=== PATIENT | male | born 1955 | race Caucasian/White ===

== ENCOUNTER 2017-02-05 16:08 | Inpatient (IN) ==
[2017-02-05] MEDS ORDERED: M.V.I.-12 10 ML, FOLIC ACID 1 MG, MAGNESIUM SULFATE 1 GM, THIAMINE 100 MG in NS 1,000 ML IV ONE (16:28)
--- NOTE | 2017-02-05 16:59 | EKG Report ---
Test Performed on : 02/05/2017 4:31:28 PM Test Reason : AMS Blood Pressure : / mmHG Vent. Rate : 092 BPM Atrial Rate : 092 BPM P-R Int : 154 ms QRS Dur : 080 ms QT Int : 342 ms P-R-T Axes : 081 087 080 degrees QTc Int : 422 ms Normal sinus rhythm. Septal infarct , age undetermined Abnormal ECG No previous ECGs available Unconfirmed Result
[2017-02-05 17:20] LABS: URINE CULTURE PL NEEDED? NO
[2017-02-05 17:24] LABS: BILIRUBIN URINE NEGATIVE (NEGATIVE); BLOOD URINE TRACE (NEGATIVE); CLARITY CLEAR (CLEAR); COLOR YELLOW; GLUCOSE URINE NEGATIVE (NEGATIVE); LEUKOCYTES URINE NEGATIVE (NEGATIVE); NITRITE URINE NEGATIVE (NEGATIVE); PH URINE 6.5; PROTEIN URINE TRACE mg/dL (NEGATIVE); UR AMPHETAMINES QUAL NONE DETECTED (NONE DETECT); UR BARBITUATES QUAL NONE DETECTED (NONE DETECT); UR BENZODIAZEPIN QUAL NONE DETECTED (NONE DETECT); UR CANNABINOIDS QUAL NONE DETECTED (NONE DETECT); UR COCAINE QUAL NONE DETECTED (NONE DETECT); UR MDMA QUAL NONE DETECTED (NONE DETECT); UR METHADONE QUAL NONE DETECTED (NONE DETECT); UR METHAMPHETAMINE QUAL NONE DETECTED (NONE DETECT); UR OPIATES QUAL NONE DETECTED (NONE DETECT); UR OXYCODONE QUAL NONE DETECTED (NONE DETECT); UR PCP QUAL NONE DETECTED (NONE DETECT); UR TCA QUAL NONE DETECTED (NONE DETECT); UROBILINOGEN URINE NORMAL
[2017-02-05 17:25] LABS: URINE RBC <10 /HPF (<10); URINE SOURCE CATH
[2017-02-05] MEDS ORDERED: NS 1,000 ML ONE (17:30)
[2017-02-05 17:37] LABS: MANUAL DIFF NEEDED? NO
[2017-02-05 17:38] LABS: BASO% 0.4 % (0.0-0.8); HEMATOCRIT 43.2 % (42.0-52.0); HEMOGLOBIN 14.9 g/dL (14.0-18.0); IMM GRAN# 0.01 X1000 (0.0-0.04); IMM GRAN% 0.2 % (0.0-0.5); LYMPH# 2.05 X1000 (1.2-3.4); LYMPH% 42.6 % (20.5-51.1); MCH 31.3 PG (27-31); MCHC 34.5 g/dL (33-37); MCV 90.8 FL (81-99); MONO# 0.29 X1000 (0.11-0.59); MPV 9.5 FL (7.4-10.4); NEUT% 50.8 % (42.2-75.2); PLT 169 X1000 (130-400); RBC 4.76 XMIL (4.7-6.1)
[2017-02-05 17:55] LABS: ACETAMINOPHEN < 1.2 ug/mL (10-30); AGAP 18; ALBUMIN 3.9 g/dL (3.5-5.0); ALKALINE PHOSPHATASE 110 U/L (32-122); BUN 10 mg/dL (8-22); CALCIUM 8.1 mg/dL (8.8-10.2); CHLORIDE 95 mmol/L (98-107); COSMO 268; GOT 36 U/L (10-34); GPT 16 U/L (10-44); LIPASE 24 U/L (13-60); POTASSIUM 3.7 mmol/L (3.5-5.1); SODIUM 135 mmol/L (136-145); TCO2 22 mmol/L (25-35); TOTAL PROTEIN 6.8 g/dL (6.3-8.3)
--- NOTE | 2017-02-05 17:59 | Diag Imaging Result Document ---
PROCEDURE NAME: HEAD W/O CONTRAST - 02/05/[address]: A CT dose reduction protocol was used. COMPARISON: None. FINDINGS: There is probably a small posterior fossa arachnoid cyst at the left cerebellar hemisphere. There is mild periventricular white matter hypodensity compatible with chronic microvascular disease of the cerebrum. No intracranial mass or hemorrhage. The skull is intact. The sinuses, mastoids, and middle ears are clear. IMPRESSION: Chronic microvascular disease. No acute disease. [facility]
--- NOTE | 2017-02-05 18:15 | Diag Imaging Result Document ---
PROCEDURE NAME: CHEST-1 VIEW - 02/05/2017 PORTABLE CHEST X-RAY: COMPARISON: 12/14/2016. FINDINGS: The lungs are normally expanded and clear. Heart size and mediastinal contours are normal. No pneumothorax or pleural effusion. IMPRESSION: Negative exam.
[2017-02-05] MEDS ORDERED: NS 1,000 ML IV SCH (18:46)
[2017-02-06] MEDS ORDERED: TYLENOL PO PRN (01:42)
[2017-02-06] MEDS ORDERED: ZOFRAN IV PRN (01:42)
[2017-02-06] MEDS ORDERED: NS 1,000 ML IV ONE (01:42)
[2017-02-06 14:08] VITALS: BP 109/62
--- NOTE | 2017-02-06 16:01 | HISTORY AND PHYSICAL ---
PRIMARY CARE PROVIDER: BEREKET Lewis. CHIEF COMPLAINT: Unresponsive. HISTORY OF PRESENT ILLNESS: Mr. Rachael Zee is a 61-year-old male with a history of alcoholism who was found unresponsive at a hotel after drinking 2 gallons of vodka. He is now awake. He is oriented. He does complain of nausea, vomiting, diarrhea. He also complains of fever and chills. No other complaints other than being very thirsty. Now that he is responsive likely will be getting discharged soon. PAST MEDICAL HISTORY: 1. Chronic pain syndrome of the right leg. 2. Depression. 3. Bipolar. SURGICAL HISTORY: Right knee surgery. SOCIAL HISTORY: Two pack per day smoker. Drinks a 5th of vodka per day. Denies illicit drug use. Lives with his brother in a tent. FAMILY HISTORY: Noncontributory. REVIEW OF SYSTEMS: Ten point review of systems were complete and all were negative except for those mentioned above HPI. ALLERGIES: No known drug allergies. HOME MEDICATIONS: Celexa 40 mg p.o. daily, Flexeril 10 mg 3 times daily as needed, Mobic 7.5 mg p.o. daily, risperidone 1 mg p.o. t.i.d. LABORATORY DATA: White blood cells 4000, hemoglobin 14, hematocrit 43, platelet count 169,000. Sodium 135, potassium 3.7, BUN 10, creatinine 0.7, glucose 71, calcium 8.1, total bilirubin 0.8, AST 36, ALT 16, ammonia 31, lipase 24. Urinalysis trace protein, small ketones, otherwise negative. Urine drug screen negative. Alcohol level on admit was 458, this morning is 268. IMAGING: Head CT was negative. Chest x-ray was negative. EKG. Normal sinus rhythm, rate 92, QTc was 422. PHYSICAL EXAM: VITAL SIGNS: Temperature 98.1 degrees, heart rate 112, respiratory rate 16, blood pressure 121/78, O2 saturation 96% on room air. He is 5 feet 8 inches tall, 170 pounds, BMI 25.8. GENERAL: Mr. Zee is a 61-year-old male. He is answering questions appropriately but is slightly anxious. HEENT: Atraumatic, normocephalic. Pupils equal, round, reactive to light. Extraocular movements intact. Mucous membranes are dry. NECK: No JVD or carotid bruits noted. CARDIOVASCULAR: S1, S2. Tachycardic rate and rhythm. No rubs, gallops, murmurs. PULMONARY: Clear to auscultate bilateral breath sounds. No accessory muscle use or work of breathing noted. GI: Soft, nontender, nondistended. Positive bowel sounds x4.. EXTREMITIES: No edema noted. +2 dorsalis and radial pulses. SKIN: Warm, dry, intact. Left index finger with old cigarette hunter. NEURO: Oriented x3. Moves all extremities equally. ASSESSMENT AND PLAN: 1. Toxic encephalopathy secondary to alcohol overdose. Apparently he drank 2 gallons of vodka. He received IV fluid hydration throughout the night and has now woken and requesting to leave and go home. No signs of delirium tremens at this time but alcohol level is still elevated. 2. Chronic pain syndrome of the right leg. 3. Depression bipolar. Continue home medications. 4. Tobacco abuse. Cessation discussed. 5. Alcohol abuse. Currently no signs of delirium tremens. Dictated by BEREKET Mixon for Sherwin Corado MD cc: BEREKET Macias MD
--- NOTE | 2017-02-07 10:35 | DISCHARGE SUMMARY ---
ADMISSION DATE: 02/06/2017 DISCHARGE DATE: 02/06/2017 DISCHARGE DIAGNOSES: 1. Acute alcohol intoxication. 2. Acute delirium secondary to alcohol intoxication, improving. Patient is awake and alert currently. CONSULTATIONS: None. PROCEDURES: None. BRIEF HOSPITAL COURSE: The patient is a 61-year-old male who was admitted as on the [facility] secondary to having acute alcohol intoxication. He was apparently found in his hotel room by the hotel staff as he had not checked out. He was brought to the emergency department. He was watched overnight. Thankfully, he is much more awake, alert, upon sobering up. On discharge, he knows where he lives and who he is. He knows what phone number to call his brother to come get him. The patient is instructed the perils of alcoholism, as well as ways to stop and has been offered different modalities which he declined. cc: Sherwin Corado MD
--- NOTE | 2017-03-15 18:31 | PROVIDER DOCUMENTATION ---
This chart was entered by Sue Reagan Scribe, acting as scribe for Mick Reis PA. HPI-General Adult - General Source: patient <Robi Chin - Last Filed: 02/09/17 19:12> - General Source: patient - History of Present Illness -Gen Adult Nature of Presenting Problems: 61 yo M presents to the ER via EMS with complaint of unresponsive. Pt was staying in a hotel, staff states for 4-5 nights. Missed checkout time so staff went to check on pt, found about 2 gallons of vodka in pt's room. Pt would not respond to PD so they called EMS, pt is arousable but does not respond. EMS reports pt responded when they placed an IV but has not said anything. <Mick Reis - Last Filed: 03/15/17 18:30> - General Source: patient <TereMartinAbiel Gil - Last Filed: 03/24/17 21:28> - General Chief Complaint: Intoxicated Stated Complaint: INTOXICATED Time Seen by Provider: 02/05/17 16:25 Allergies/Adverse Reactions: Patient Allergies Allergy/AdvReac Type Severity Reaction Status Date / Time No Known Allergies Allergy Verified 02/05/17 16:12 Home Medications: Home Medication List Medication Instructions Recorded Confirmed Last Taken Type Citalopram [Celexa] 40 mg PO DAILY 12/14/16 12/14/16 12/14/16 07:00 History Cyclobenzaprine [Flexeril] 10 mg PO TID #20 tablet 12/14/16 Unknown Rx Meloxicam [Mobic] 7.5 mg PO DAILY PRN PRN #15 tablet 12/14/16 Unknown Rx Risperidone [Risperdal] 1 mg PO TID 12/14/16 12/14/16 12/14/16 07:00 History Review of Systems - Adult - REVIEW OF SYSTEMS - ADULT Constitutional: reports: no symptoms reported Eyes: reports: no symptoms reported Ears, Nose, Mouth & Throat: reports: no symptoms reported Cardiovascular: reports: no symptoms reported Respiratory: reports: no symptoms reported Gastrointestinal: reports: no symptoms reported Genitourinary: reports: no symptoms reported Musculoskeletal: reports: no symptoms reported Integumentary: reports: no symptoms reported Neurological: reports: no symptoms reported Psychiatric: reports: no symptoms reported Endocrine: reports: no symptoms reported Hematologic/Lymphatic: reports: no symptoms reported Allergic/Immunologic: reports: no symptoms reported All Other Systems: Reviewed and Negative <Robi Chin - Last Filed: 02/09/17 19:12> - REVIEW OF SYSTEMS - ADULT ROS:: unobtainable per condition Constitutional: denies: chills, fever Eyes: reports: no symptoms reported Ears, Nose, Mouth & Throat: reports: no symptoms reported Cardiovascular: reports: no symptoms reported Respiratory: reports: no symptoms reported Gastrointestinal: reports: no symptoms reported Genitourinary: reports: no symptoms reported Musculoskeletal: reports: no symptoms reported Integumentary: reports: no symptoms reported Neurological: reports: no symptoms reported Psychiatric: reports: no symptoms reported Endocrine: reports: no symptoms reported Hematologic/Lymphatic: reports: no symptoms reported Allergic/Immunologic: reports: no symptoms reported All Other Systems: Reviewed and Negative <Mick Reis - Last Filed: 03/15/17 18:30> - REVIEW OF SYSTEMS - ADULT ROS:: unobtainable per condition Constitutional: reports: no symptoms reported Eyes: reports: no symptoms reported Ears, Nose, Mouth & Throat: reports: no symptoms reported Cardiovascular: reports: no symptoms reported Respiratory: reports: no symptoms reported Gastrointestinal: reports: no symptoms reported Genitourinary: reports: no symptoms reported Musculoskeletal: reports: no symptoms reported Integumentary: reports: no symptoms reported Neurological: reports: no symptoms reported Psychiatric: reports: no symptoms reported Endocrine: reports: no symptoms reported Hematologic/Lymphatic: reports: no symptoms reported Allergic/Immunologic: reports: no symptoms reported All Other Systems: Reviewed and Negative <Katy Carranza - Last Filed: 03/24/17 21:28> Past History - Adult - PAST MEDICAL HISTORY-ADULT Review of Records: reports: Nursing Assessment Review, Medications Reviewed <Robi Chin - Last Filed: 02/09/17 19:12> - PAST MEDICAL HISTORY-ADULT Review of Records: reports: Nursing Assessment Review, Medications Reviewed - PRIOR SURGERIES/PROCEDURES Surgical/Procedure History: reports: orthopedic (extremity) - IMMUNIZATION STATUS Childhood Immunizations: See Nurse Assessment Flu Vaccine: See Nurse Assessment <Mick Reis - Last Filed: 03/15/17 18:30> - PAST MEDICAL HISTORY-ADULT Review of Records: reports: Old Records Reviewed Major Childhood Illnesses: reports: denies history Cardiovascular: reports: denies history Respiratory: reports: denies history Gastrointestinal: reports: denies history Obstetrical/Gynecological: reports: denies history Genitourinary: reports: denies history Musculoskeletal: reports: denies history Neurological: reports: denies history Endocrine/Immune: reports: denies history Other Conditions: reports: denies history - PRIOR SURGERIES/PROCEDURES Surgical/Procedure History: reports: reviewed, not pertinent - IMMUNIZATION STATUS Childhood Immunizations: See Nurse Assessment Flu Vaccine: See Nurse Assessment - FAMILY HISTORY Family History: reviewed, not pertinent - SOCIAL HISTORY Smoking: denies Substance Use: alcohol Alcohol Use Frequency: every day Number of drinks per typical drinking period:: >20 drinks Living Situation: alone <Katy Carranza - Last Filed: 03/24/17 21:28> Physical Exam-General - PHYSICAL EXAM-ADULT Initial Vital Signs Reviewed: Yes - CONSTITUTIONAL General Appearance: appears well - EYES Eyes: PERRL/EOMI, pink conjunctivae - HEAD, EARS, NOSE, MOUTH & THROAT HENMT: normocephalic/atraumatic, normal ENT inspection, pharynx normal - NECK Neck: non-tender, full range of motion, supple, normal inspection - RESPIRATORY Respiratory: lungs clear, normal breath sounds, no pleuratic chest pain, no respiratory distress, no accessory muscle use - CARDIOVASCULAR Cardiovascular: normal peripheral pulses, regular rate, rhythm, no edema, no gallop, no JVD, no murmur - GASTROINTESTINAL (ABDOMEN) Abdominal Exam: normal bowel sounds, non tender, soft, no organomegaly, no pulsatile mass - LYMPHATIC Lymphatic: no adenopathy - MUSCULOSKELETAL Back Exam: normal inspection, no CVA tenderness, no vertebral tenderness Extremity: normal range of motion, non-tender, normal gait, normal inspection, no pedal edema, no calf tenderness, normal capillary refill, pelvis stable - SKIN Integumentary: normal color, normal turgor, warm/dry - NEUROLOGIC Neurologic: police detention attendant II-XII nml as tested, no motor/sensory deficits - PSYCHIATRIC Psych/Mental Status: normal mood/affect, normal thought content, normal thought process, oriented x 3 <Robi Chin - Last Filed: 02/09/17 19:12> - PHYSICAL EXAM-ADULT Initial Vital Signs Reviewed: Yes - CONSTITUTIONAL General Appearance: other (arousable but unresponsive) - EYES Eyes: PERRL/EOMI, pink conjunctivae - HEAD, EARS, NOSE, MOUTH & THROAT HENMT: normocephalic/atraumatic, normal ENT inspection - NECK Neck: supple, normal inspection - RESPIRATORY Respiratory: no respiratory distress, no accessory muscle use - CARDIOVASCULAR Cardiovascular: normal peripheral pulses, regular rate, rhythm - SKIN Integumentary: normal color, warm/dry <Mick Reis - Last Filed: 03/15/17 18:30> - PHYSICAL EXAM-ADULT Initial Vital Signs Reviewed: Yes - CONSTITUTIONAL General Appearance: other - EYES Eyes: PERRL/EOMI, pink conjunctivae - HEAD, EARS, NOSE, MOUTH & THROAT HENMT: normocephalic/atraumatic, normal ENT inspection - NECK Neck: supple, normal inspection - RESPIRATORY Respiratory: no respiratory distress, no accessory muscle use - CARDIOVASCULAR Cardiovascular: normal peripheral pulses, regular rate, rhythm - GASTROINTESTINAL (ABDOMEN) Abdominal Exam: normal bowel sounds - SKIN Integumentary: normal color, warm/dry - NEUROLOGIC Neurologic: abnormal gait <Katy Carranza - Last Filed: 03/24/17 21:28> Progress - PLAN OF CARE/RESULTS Progress/Plan/Lab Results: Laboratory Results - last 24 hr 02/05/17 02/05/17 02/05/17 17:10 17:10 17:32 WBC RBC Hgb Hct MCV MCH MCHC RDW Std Deviation Plt Count MPV Immature Gran % (Auto) Neut % (Auto) Lymph % (Auto) [place] % (Auto) Eos % (Auto) Baso % (Auto) Immature Gran # (Auto) Neut # (Auto) Lymph # (Auto) [place] # (Auto) Eos # (Auto) Baso # (Auto) Sodium 135 L Potassium 3.7 Chloride 95 L Carbon Dioxide 22 L Anion Gap 18 BUN 10 Creatinine 0.7 Estimated GFR/1.73 m2 > 60 BUN/Creatinine Ratio 14 Glucose 71 Calculated Osmolality 268 Calcium 8.1 L Total Bilirubin 0.80 AST 36 H ALT 16 Alkaline Phosphatase 110 Ammonia Total Protein 6.8 Albumin 3.9 Globulin 3.0 Albumin/Globulin Ratio 1.0 Lipase 24 Urine Source CATH Urine Color YELLOW Urine Clarity CLEAR Urine pH 6.5 Ur Specific Bath 1.010 Urine Protein TRACE A Urine Ketones 1+(Small) A Urine Blood TRACE Urine Nitrite NEGATIVE Urine Bilirubin NEGATIVE Urine Urobilinogen NORMAL Urine Microscopic RBC <10 Urine WBC NEGATIVE Urine Glucose NEGATIVE Salicylates < 3.00 L Urine Opiates Screen NONE DETECTED Ur Oxycodone Screen NONE DETECTED Urine Methadone Screen NONE DETECTED Acetaminophen < 1.2 L Ur Barbituates Screen NONE DETECTED Ur Tricyclics Screen NONE DETECTED Ur Phencyclidine Scrn NONE DETECTED Ur Amphetamines Screen NONE DETECTED U Methamphetamines Scrn NONE DETECTED Urine MDMA Screen NONE DETECTED U Benzodiazepines Scrn NONE DETECTED Urine Cocaine Screen NONE DETECTED U Cannabinoids Screen NONE DETECTED Plasma/Serum Ethyl Alc 02/05/17 02/05/17 02/05/17 17:32 17:32 17:32 WBC 4.81 RBC 4.76 Hgb 14.9 Hct 43.2 MCV 90.8 MCH 31.3 H MCHC 34.5 RDW Std Deviation 12.0 Plt Count 169 MPV 9.5 Immature Gran % (Auto) 0.2 Neut % (Auto) 50.8 Lymph % (Auto) 42.6 [place] % (Auto) 6.0 Eos % (Auto) 0.0 Baso % (Auto) 0.4 Immature Gran # (Auto) 0.01 Neut # (Auto) 2.44 Lymph # (Auto) 2.05 [place] # (Auto) 0.29 Eos # (Auto) 0.00 Baso # (Auto) 0.02 Sodium Potassium Chloride Carbon Dioxide Anion Gap BUN Creatinine Estimated GFR/1.73 m2 BUN/Creatinine Ratio Glucose Calculated Osmolality Calcium Total Bilirubin AST ALT Alkaline Phosphatase Ammonia 31 Total Protein Albumin Globulin Albumin/Globulin Ratio Lipase Urine Source Urine Color Urine Clarity Urine pH Ur Specific [place] Urine Protein Urine Ketones Urine Blood Urine Nitrite Urine Bilirubin Urine Urobilinogen Urine Microscopic RBC Urine WBC Urine Glucose Salicylates Urine Opiates Screen Ur Oxycodone Screen Urine Methadone Screen Acetaminophen Ur Barbituates Screen Ur Tricyclics Screen Ur Phencyclidine Scrn Ur Amphetamines Screen U Methamphetamines Scrn Urine MDMA Screen U Benzodiazepines Scrn Urine Cocaine Screen U Cannabinoids Screen Plasma/Serum Ethyl Alc 458 H* 02/06/17 04:35 WBC RBC Hgb Hct MCV MCH MCHC RDW Std Deviation Plt Count MPV Immature Gran % (Auto) Neut % (Auto) Lymph % (Auto) [place] % (Auto) Eos % (Auto) Baso % (Auto) Immature Gran # (Auto) Neut # (Auto) Lymph # (Auto) [place] # (Auto) Eos # (Auto) Baso # (Auto) Sodium Potassium Chloride Carbon Dioxide Anion Gap BUN Creatinine Estimated GFR/1.73 m2 BUN/Creatinine Ratio Glucose Calculated Osmolality Calcium Total Bilirubin AST ALT Alkaline Phosphatase Ammonia Total Protein Albumin Globulin Albumin/Globulin Ratio Lipase Urine Source Urine Color Urine Clarity Urine pH Ur Specific [place] Urine Protein Urine Ketones Urine Blood Urine Nitrite Urine Bilirubin Urine Urobilinogen Urine Microscopic RBC Urine WBC Urine Glucose Salicylates Urine Opiates Screen Ur Oxycodone Screen Urine Methadone Screen Acetaminophen Ur Barbituates Screen Ur Tricyclics Screen Ur Phencyclidine Scrn Ur Amphetamines Screen U Methamphetamines Scrn Urine MDMA Screen U Benzodiazepines Scrn Urine Cocaine Screen U Cannabinoids Screen Plasma/Serum Ethyl Alc 268 H Orders Category Date Time Status Admit - [facility] Routine AdmDCTranf 02/06/17 01:42 Ordered Activity - Strict Bedrest ORDERED Care 02/06/17 01:42 Active Call Admitting on Arrival AT ADMISSION Care 02/06/17 01:49 Active Neurological Check Q4H Care 02/06/17 01:50 Active Saline Loc DIRECTED Care 02/06/17 01:42 Active Saline Loc NOW Care 02/05/17 16:27 Active Vital Signs Order ARRIVAL TO ROOM Care 02/06/17 01:42 Active Heart Healthy Diet Diet 02/06/17 01:50 Active CHEST-1 VIEW [RAD] Stat Exams 02/05/17 16:28 Draft HEAD W/O CONTRAST [CT] Stat Exams 02/05/17 16:28 Draft ACETAMINOPHEN [TDM] Stat Lab 02/05/17 17:32 Completed ALCOHOL BLOOD Stat Lab 02/05/17 17:32 Completed AMMONIA [CHEM] Stat Lab 02/05/17 17:32 Completed CBC WITH DIFF [HEME] Stat Lab 02/05/17 17:32 Completed COMPREHENSIVE METABOLIC PANEL [CHEM] Stat Lab 02/05/17 17:32 Completed ETOH [ALCOHOL BLOOD] Stat Lab 02/06/17 04:35 Completed LIPASE [CHEM] Stat Lab 02/05/17 17:32 Completed SALICYLATES [TDM] Stat Lab 02/05/17 17:[address] W/POSS RFLX CULT [URINALYSIS] Stat Lab 02/05/17 17:10 Completed URINE DRUG SCREEN PL Stat Lab 02/05/17 17:10 Completed 0.9% Sodium Chloride Inj [Ns] 1,000 ml Med 02/05/17 17:30 Discontinued .ROUTE As Directed 0.9% Sodium Chloride Inj [Ns] 1,000 ml Med 02/05/17 18:46 Active IV 100 mls/hr 0.9% Sodium Chloride Inj [Ns] 1,000 ml Med 02/06/17 01:42 Active IV 200 mls/hr Acetaminophen [Tylenol] Med 02/06/17 01:42 Active 650 mg PO Q6H PRN PRN Mvi [M.v.i.-12] 10 ml Med 02/05/17 16:28 Discontinued Folic Acid 1 mg Magnesium Sulfate 1 gm Thiamine 100 mg 0.9% Sodium Chloride Inj [Ns] 1,000 ml IV NOW Ondansetron [Zofran] Med 02/06/17 01:42 Active 4 mg IV Q4H PRN PRN Oxygen Device Routine Oth 02/06/17 01:50 Active Telemetry [OM.EQ] Routine Oth 02/06/17 01:42 Active EKG [EKG] Stat Ther 02/05/17 16:27 Draft Transfer/Admit Order [TRANSFER] Routine Transfer 02/06/17 01:50 Ordered Result Diagrams: 02/05/17 17:32 02/05/17 17:32 <Robi Chin - Last Filed: 02/09/17 19:12> - PLAN OF CARE/RESULTS Progress/Plan/Lab Results: Vital Signs - 8 hr 02/05/17 16:10 Temperature 98.1 F Pulse Rate 114 H Respiratory Rate 16 Blood Pressure 113/83 O2 Sat by Pulse Oximetry 93 L Result Diagrams: 02/05/17 17:32 02/05/17 17:32 - EKG 1 Time of EKG reading by physician:: 16:31 EKG Read and Signed by:: Augustine Madera EKG Interpretation (*Must complete 3 of following elements*): Abnormal Rate: 92 Rhythm: normal sinus rhythm [place]: normal QRS: normal HI Interval: normal ST Wave: normal Comments: septal infarct, age undetermined - CHANGE OF SHIFT REPORT (ED Provider) Report Given and Care Transferred to:: BEREKET Rao Time of Transfer: 19:54 Items Pending: Other ([place]) Comment: Stable Resting comfortably. <Mick Reis - Last Filed: 03/15/17 18:30> - PLAN OF CARE/RESULTS Progress/Plan/Lab Results: Vital Signs - 8 hr 02/05/17 16:10 02/05/17 18:24 Temperature 98.1 F Pulse Rate 114 H 87 Respiratory Rate 16 16 Blood Pressure 113/83 117/86 O2 Sat by Pulse Oximetry 93 L 98 Laboratory Results - last 24 hr 02/05/17 02/05/17 02/05/17 17:10 17:10 17:32 WBC RBC Hgb Hct MCV MCH MCHC RDW Std Deviation Plt Count MPV Immature Gran % (Auto) Neut % (Auto) Lymph % (Auto) [place] % (Auto) Eos % (Auto) Baso % (Auto) Immature Gran # (Auto) Neut # (Auto) Lymph # (Auto) [place] # (Auto) Eos # (Auto) Baso # (Auto) Sodium 135 L Potassium 3.7 Chloride 95 L Carbon Dioxide 22 L Anion Gap 18 BUN 10 Creatinine 0.7 Estimated GFR/1.73 m2 > 60 BUN/Creatinine Ratio 14 Glucose 71 Calculated Osmolality 268 Calcium 8.1 L Total Bilirubin 0.80 AST 36 H ALT 16 Alkaline Phosphatase 110 Ammonia Total Protein 6.8 Albumin 3.9 Globulin 3.0 Albumin/Globulin Ratio 1.0 Lipase 24 Urine Source CATH Urine Color YELLOW Urine Clarity CLEAR Urine pH 6.5 Ur Specific Bath 1.010 Urine Protein TRACE A Urine Ketones 1+(Small) A Urine Blood TRACE Urine Nitrite NEGATIVE Urine Bilirubin NEGATIVE Urine Urobilinogen NORMAL Urine Microscopic RBC <10 Urine WBC NEGATIVE Urine Glucose NEGATIVE Salicylates < 3.00 L Urine Opiates Screen NONE DETECTED Ur Oxycodone Screen NONE DETECTED Urine Methadone Screen NONE DETECTED Acetaminophen < 1.2 L Ur Barbituates Screen NONE DETECTED Ur Tricyclics Screen NONE DETECTED Ur Phencyclidine Scrn NONE DETECTED Ur Amphetamines Screen NONE DETECTED U Methamphetamines Scrn NONE DETECTED Urine MDMA Screen NONE DETECTED U Benzodiazepines Scrn NONE DETECTED Urine Cocaine Screen NONE DETECTED U Cannabinoids Screen NONE DETECTED Plasma/Serum Ethyl Alc 02/05/17 02/05/17 02/05/17 17:32 17:32 17:32 WBC 4.81 RBC 4.76 Hgb 14.9 Hct 43.2 MCV 90.8 MCH 31.3 H MCHC 34.5 RDW Std Deviation 12.0 Plt Count 169 MPV 9.5 Immature Gran % (Auto) 0.2 Neut % (Auto) 50.8 Lymph % (Auto) 42.6 [place] % (Auto) 6.0 Eos % (Auto) 0.0 Baso % (Auto) 0.4 Immature Gran # (Auto) 0.01 Neut # (Auto) 2.44 Lymph # (Auto) 2.05 [place] # (Auto) 0.29 Eos # (Auto) 0.00 Baso # (Auto) 0.02 Sodium Potassium Chloride Carbon Dioxide Anion Gap BUN Creatinine Estimated GFR/1.73 m2 BUN/Creatinine Ratio Glucose Calculated Osmolality Calcium Total Bilirubin AST ALT Alkaline Phosphatase Ammonia 31 Total Protein Albumin Globulin Albumin/Globulin Ratio Lipase Urine Source Urine Color Urine Clarity Urine pH Ur Specific [place] Urine Protein Urine Ketones Urine Blood Urine Nitrite Urine Bilirubin Urine Urobilinogen Urine Microscopic RBC Urine WBC Urine Glucose Salicylates Urine Opiates Screen Ur Oxycodone Screen Urine Methadone Screen Acetaminophen Ur Barbituates Screen Ur Tricyclics Screen Ur Phencyclidine Scrn Ur Amphetamines Screen U Methamphetamines Scrn Urine MDMA Screen U Benzodiazepines Scrn Urine Cocaine Screen U Cannabinoids Screen Plasma/Serum Ethyl Alc 458 H* Orders Category Date Time Status Saline Loc NOW Care 02/05/17 16:27 Active CHEST-1 VIEW [RAD] Stat Exams 02/05/17 16:28 Draft HEAD W/O CONTRAST [CT] Stat Exams 02/05/17 16:28 Draft ACETAMINOPHEN [TDM] Stat Lab 02/05/17 17:32 Completed ALCOHOL BLOOD Stat Lab 02/05/17 17:32 Completed AMMONIA [CHEM] Stat Lab 02/05/17 17:32 Completed CBC WITH DIFF [HEME] Stat Lab 02/05/17 17:32 Completed COMPREHENSIVE METABOLIC PANEL [CHEM] Stat Lab 02/05/17 17:32 Completed LIPASE [CHEM] Stat Lab 02/05/17 17:32 Completed SALICYLATES [TDM] Stat Lab 02/05/17 17:[address] W/POSS RFLX CULT [URINALYSIS] Stat Lab 02/05/17 17:10 Completed URINE DRUG SCREEN PL Stat Lab 02/05/17 17:10 Completed 0.9% Sodium Chloride Inj [Ns] 1,000 ml Med 02/05/17 17:30 Discontinued .ROUTE As Directed 0.9% Sodium Chloride Inj [Ns] 1,000 ml Med 02/05/17 18:46 Active IV 100 mls/hr Mvi [M.v.i.-12] 10 ml Med 02/05/17 16:28 Discontinued Folic Acid 1 mg Magnesium Sulfate 1 gm Thiamine 100 mg 0.9% Sodium Chloride Inj [Ns] 1,000 ml IV NOW EKG [EKG] Stat Ther 02/05/17 16:27 Draft Result Diagrams: 02/05/17 17:32 02/05/17 17:32 - REASSESSMENT Reassessment #1 Time Reassessed: 20:18 Status: unchanged Reassessment Comment: aroused to deep stimulation Reassessment #2 Time Reassessed: 01:10 Status: unchanged Reassessment Comment: sleeping comfortably - CHANGE OF SHIFT REPORT (ED Provider) Report Given and Care Transferred to:: dr chin Items Pending: Other Comment: Pt stable and resting comfortably <Katy Carranza - Last Filed: 03/24/17 21:28> Departure - Departure Time of Disposition Decision: 05:30 Certified Medical Emergency: Emergent <Robi Chin - Last Filed: 02/09/17 19:12> <Mick Reis - Last Filed: 03/15/17 18:30> - Departure Time of Disposition Decision: 14:00 Certified Medical Emergency: Emergent - Critical Care Note This patient required my direct & personal management of CC.: No <Katy Carranza - Last Filed: 03/24/17 21:28> - Departure DIAGNOSIS: ETOH abuse Disposition: ADMITTED INPATIENT 09 Condition: Stable Attestation - Physician/ ROBIN Attestation Patient care was provided by Advanced Practice Provider:: Yes Advanced Practice Provider:: Katy Carranza Advanced Practice Provider documentation review:: The Mid-level provider documentation, treatment plan and medical decision making was reviewed by the physician who agrees with all treatment and medical decision making by the MLP. <Katy Carranza - Last Filed: 03/24/17 21:28> This chart was documented by the indicated scribe, (Sue Reagan Scribe) and accurately reflects the services I performed and decisions made by me, Mick Reis PA, as attested by the provider's signature.
== END 2017-02-06 16:30 | disposition home or self-care (01) ==
LOC: P.ED 16:08 → SUATTDRO 02-06 05:56 → P.EDIPHOLD 02-06 05:56
PROVIDERS: ATTEND Family Medicine